=== PATIENT | female | born 1960 | race Caucasian/White ===

== ENCOUNTER 2019-10-05 15:05 | Outpatient (REF) | payer MEDICAID, SELFPAY ==
--- NOTE | 2019-10-05 14:15 | PAPFT_PTH ---
PATIENT: Bayron Mcfarlane LOC: [facility] U#:[id number] AGE/SX: 59/F ROOM: RE10/05/[address]: Sahra Cho MD : [id number] BED: DIS: 10/05/2019 SPEC #: [id number] RECD: 10/06/19 12:37 STATUS: SOLEDAD REQ #: [id number] JEFFREY: 10/05/19 14:[address]: Sahra Cho DEPT: [facility] Cytology RECD BY: Michelle Paez ENTERED: 10/06/19 12:38 SP TYPE: PAPFT OTHR DR: Darío Lua MD Tissues: 1 - CX/ENDOCX FOR PAP SMEARS Procedures: PAP THIN PREP/[facility] Screening HPV DNA PROBE Comments: [id number]
== END 2019-10-05 15:25 ==
LOC: LBN 15:05
PROVIDERS: PCP Family Medicine; Visit Provider Family Medicine
DX: N89.8 Other specified noninflammatory disorders of vagina (principal); Z12.4 Encounter for screening for malignant neoplasm of cervix; Z11.51 Encounter for screening for human papillomavirus (HPV)
CPT/HCPCS: 88142; 87480; 87510; 87624; 87660

== ENCOUNTER 2019-10-12 02:12 | Outpatient (CLI) | payer MEDICAID, SELFPAY ==
--- NOTE | 2019-10-12 08:00 | DI.US_ITS ---
EXAM: US PELVIS TRANSVAGINAL CLINICAL HISTORY: post menopausal bleeding,N95.0. TECHNIQUE: Transabdominal and transvaginal pelvic ultrasound was performed using standard protocol. COMPARISON: No exams were available for comparison FINDINGS: KIDNEYS: Kidneys are symmetric in size. No evidence of renal calculi. No evidence of hydronephrosis. No renal mass or cyst identified. UTERUS: Position: Anteverted. Size: 6.6 long by 3.1 AP by 4.1 transverse cm Endometrium: Less than 0.3 cm. Normal for patient's menstrual status. Fluid within the endometrial ca nal. Myometrium: Unremarkable. Cervix: Unremarkable. OVARIES: Right: 2.1 x 1.5 x 1.1 cm Cyst or mass: None. Left: 1.6 x 1 x 1.2 cm Cyst or mass: None. DOPPLER: Color: Symmetric and uniform flow to both ovaries. No hyperemia. Duplex: Normal ovarian arterial waveforms visualized. CUL-DE-SAC: Free fluid: None. Other: None. IMPRESSION: 1. Normal sonographic appearance of the kidneys. 2. Normal-appearing uterus with endometrial stripe within normal limits. 3. Small amount of fluid within the endometrial canal. 4. Unremarkable bilateral ovaries. DATA REPOSITORY:
== END 2019-10-12 02:32 ==
PROVIDERS: PCP Nurse Practitioner Family; Visit Provider Family Medicine
DX: N95.0 Postmenopausal bleeding (principal)
CPT/HCPCS: 76830; 76856

== ENCOUNTER 2020-04-10 16:49 | Outpatient (REF) | payer MEDICAID, SELFPAY | END 2020-04-10 17:09 | LOC: LBN 16:49 | PROVIDERS: PCP Nurse Practitioner Family; Visit Provider Nurse Practitioner Family | DX: N76.0 Acute vaginitis (principal) | CPT/HCPCS: 87480; 87510; 87660 ==

== ENCOUNTER 2020-11-23 17:32 | Outpatient (REF) | payer MEDICAID, SELFPAY ==
[2020-11-24 14:23] LABS: COVID-19 RT-PCR UVMMC Result Negative (Negative)
== END 2020-11-23 17:33 | disposition home or self-care (01) ==
LOC: NCHCN 17:32
PROVIDERS: Visit Provider Physician Assistant Medical
DX: Z20.822 Contact with and (suspected) exposure to COVID-19 (principal); R05 Cough; R07.89 Other chest pain
CPT/HCPCS: U0003

== ENCOUNTER → 2021-12-31 01:23 | Outpatient (CLI) | payer MEDICAID, SELFPAY ==
--- NOTE | 2021-12-31 | DI.RAD_ITS ---
Exam(s) XR CERVICAL SPINE COMP 4-5V EXAM: XR CERVICAL SPINE COMP 4-5V CLINICAL HISTORY: NECK PAIN M54.2. TECHNIQUE: 2D digital imaging was performed. Six images were obtained. AP, odontoid, lateral and samuel ateral oblique images were obtained. COMPARISON: No exams were available for comparison FINDINGS: The odontoid is intact. The lateral masses are well aligned. There is normal alignment of the cervi jorge spine. There is fusion of the C2, C3 and C4 vertebral bodies and posterior elements. Disc space narrowing and endplate osteophytes are seen at C5-C6 and C6-C7. Degenerative changes of the facets ar e seen at multiple levels. No acute fracture or subluxation is present. No significant neural forami nal stenosis is present. The cervical thoracic junction is well maintained. The prevertebral soft t issues are unremarkable. Lung apices are clear. IMPRESSION: Moderate cervical spondylosis. DATA REPOSITORY: RADIATION DOSE DELIVERED:
== END ==
PROVIDERS: Visit Provider Physician Assistant Medical
DX: M47.812 Spondylosis without myelopathy or radiculopathy, cervical region (principal)
CPT/HCPCS: 72050